=== PATIENT | female | born 1995 | race Two or more races ===

== ENCOUNTER 2022-02-06 08:13 | Emergency (ER) | payer OTHER ==
[~2022-02-06] VITALS: Ht 160 cm; Wt 72.6 kg
[2022-02-06 09:17] VITALS: BP 155/105
[2022-02-06] MEDS ORDERED: IOHEXOL 300 MG/ML 100ML BOTTLE IJ ONE (09:48)
[2022-02-06] MEDS ORDERED: KETOROLAC TROMETH 60MG/2ML VIAL IM ONE (10:00)
[2022-02-06] MEDS ORDERED: IBU600T PO (12:39)
== END 2022-02-06 13:22 | disposition home or self-care (01) ==
LOC: ER 08:13 → EDBD 08:13 → ER 13:18
DX: M25.511 Pain in right shoulder (principal); M25.551 Pain in right hip; M25.561 Pain in right knee; M79.10 Myalgia, unspecified site; V43.62XA Car passenger injured in collision with other type car in traffic accident, initial encounter; Y93.89 Activity, other specified; Y92.410 Unspecified street and highway as the place of occurrence of the external cause; Y99.8 Other external cause status
CPT/HCPCS: 70450; 71260; 72125; 73060; 73560; 74177; 96372; 99285; J1885; Q9967